=== PATIENT | female | born 1975 | race Caucasian/White ===

== ENCOUNTER 2017-04-27 14:31 | Emergency (ER) | payer OTHER ==
[~2017-04-27] VITALS: Ht 157.5 cm; Wt 56.2 kg
--- NOTE | ~2017-04-27 | EKG ---
PATIENT: JUNIOR YEH UNIT #: [id number] Ventricular Rate: 71 BPM Atrial Rate: 71 BPM P-R Interval: 134 ms QRS Duration: 82 ms Q-T Interval: 376 ms QTC Calculation(Bezet): 408 ms P [place]ck[place]: 52 degrees Calculated R [place]ck[place]: 58 degrees Calculated T [place]: 56 degrees Diagnosis Line: Normal sinus rhythm Diagnosis Line: poor r wave progression V1-V3 Diagnosis Line: Borderline ECG Diagnosis Line: When compared with ECG of 24-JAN-2014 17:47, Diagnosis Line: No significant change was found Diagnosis Line: Confirmed by KAIN LEBLANC MD ([id number]) on 04/27/2017 Diagnosis Line: 7:28:38 PM INTERPRETING MD: DEANA CORTES
--- NOTE | ~2017-04-27 | CR72 ---
[facility] A Service of [facility] RADIOLOGY TEXT RESULTS PATIENT: DOLORES YEH LOCATION: [facility] : 75 UNIT #: [id number] AGE: [address]: Hannah Jaime MD SEX: F ORDER DR: [id number] [facility] [address] [place], [place] [address] [id number] E MR#: [id number] Acc #: [id number] NAME: DOLORES YEH : 1975 SEX: F STUDY DATE/TIME: 04/27/2017 15:37 UNIT: [facility] ROOM: STUDY DESCRIPTION: CR Chest Single View Portable Attending Physician: Hannah Jaime M.D. Ordering Physician: Shirlene Garcia M.D. Primary Care Physician: Dolores Thrasher M.D. MEDICAL IMAGING REPORT This report is preliminary unless electronic signature is present EXAM Portable chest x-ray 04/27/2017 HISTORY Chest pain. Dizziness. Near-syncope. Smoker 20 years. TECHNIQUE AP radiograph of the chest is presented. COMPARISON STUDIES 11/08/2014. FINDINGS Heart and mediastinum normal in size and contour. Lungs hyperinflated as on prior studies suggesting underlying COPD in this patient with long-term history of tobacco usage. Linear scarring at bilateral lung bases stable. There is no evidence of acute infectious or inflammatory disease, pleural effusion or pneumothorax. There is no suspicious nodule. The bony structures are unremarkable. I believe the patient is status post, at least left augmentation mammoplasty. Correlate with surgical history. Dictated by... Mohsen Merida M.D. THIS IS AN ELECTRONICALLY VERIFIED REPORT Mohsen Merida M.D. at 04/28/2017 6:15 PM LESLEY/jaye TD: 04/27/2017 22:11 JOB #: [id number] [facility] A Service of [facility] RADIOLOGY TEXT RESULTS PATIENT: DOLORES YEH LOCATION: [facility] : 75 UNIT #: [id number] AGE: [address]: Hannah Jaime MD SEX: F ORDER DR: MEDICAL IMAGING REPORT Page 1 of 1 COPY
[2017-04-27 15:59] LABS: BASOPHIL# 0.1 X10e3 (0-0.3); BASOPHIL% 0.6 % (0-2.5); EOSINOPHIL# 0.1 X10e3 (0-0.7); EOSINOPHIL% 1.3 % (0.0-7.0); HEMATOCRIT 45.8 % (35.0-45.0); LYMPHOCYTE# 2.1 X10e3 (1.0-3.5); MEAN CELL VOLUME 94.5 FL (83-96); MEAN CORPUSCULAR HEMOGLOBIN 30.9 PG (28-34); MEAN CORPUSCULAR HGB CONC 32.7 g/dL (30-36); MEAN PLATELET VOLUME 11.7 FL (6.5-11.5); MONOCYTE# 0.7 X10e3 (0-1.0); NEUTROPHIL# 5.8 X10e3 (1.5-7.1); NEUTROPHIL% 66.1 % (40-75); PLATELET COUNT 213 X10e3 (140-420); RED BLOOD COUNT 4.85 X10e (3.90-5.30); RED CELL DISTRIBUTION WIDTH 13.1 % (11.0-15.5); WHITE BLOOD COUNT 8.8 X10e3 (4.0-10.5)
[2017-04-27 16:04] LABS: DIFF IND NO
[2017-04-27 16:09] LABS: POC - CKMB <1.0 ng/mL (0.0-7.9); POC - TROPONIN <0.05 ng/mL (<=0.05)
[2017-04-27 16:12] LABS: PARTIAL THROMBOPLASTIN TIME 26.1 SECONDS (23.5-31.3); PROTHROMBIN TIME (PATIENT) 10.9 SECONDS (10.0-11.7)
[2017-04-27 16:35] LABS: ALBUMIN SERUM 4.5 g/dL (3.5-5.0); BILIRUBIN, DIRECT 0.1 mg/dL (0.0-0.2); BILIRUBIN,INDIRECT 0.3 mg/dL (0.0-0.9); BILIRUBIN,TOTAL 0.4 mg/dL (0.2-2.0); CALCIUM SERUM 9.6 mg/dL (8.4-10.2); CREATININE SERUM 0.7 mg/dL (0.6-1.4); GLOM FILT RATE Estimated 106.9 mL/min (>60); POTASSIUM 3.8 mmol/L (3.5-5.1); PROTEIN TOTAL SERUM 7.6 g/dL (6.0-8.3)
[2017-04-27 17:48] LABS: POC - CKMB <1.0 ng/mL (0.0-7.9); POC - TROPONIN <0.05 ng/mL (<=0.05)
== END 2017-04-27 18:24 | disposition home or self-care (01) ==
LOC: CED 14:31
PROVIDERS: Emergency Medicine
DX: R07.89 Other chest pain (principal)
CPT/HCPCS: 36415; 71010; 80048; 80076; 82553; 84484; 85025; 85610; 85730; 93005; 99285

== ENCOUNTER → 2017-05-23 | Outpatient (CLI) | payer OTHER | END | disposition home or self-care (01) | LOC: CECH 12:56 | DX: R07.89 Other chest pain (principal); R00.2 Palpitations; I34.0 Nonrheumatic mitral (valve) insufficiency; I36.1 Nonrheumatic tricuspid (valve) insufficiency | CPT/HCPCS: 93306 ==